=== PATIENT | female | born 1980 | race Caucasian/White ===

== ENCOUNTER 2023-07-29 02:43 | Inpatient (IN) | payer OTHER ==
[~2023-07-29] VITALS: Ht 167.6 cm; Wt 113.4 kg
[2023-07-29 02:50] VITALS: BP_SYST 162; PULSE 83; RESP 16; TEMP 97.1; O2SAT 98
[2023-07-29 03:49] LABS: BASOPHILS # (AUTO) 0.1 K/uL (0.0-0.2); EOSINOPHILS # (AUTO) 0.3 K/uL (0.0-0.4); EOSINOPHILS % (AUTO) 4.1 % (0.0-4.0); HEMATOCRIT 31.2 % (36-48); HEMOGLOBIN 10.3 g/dL (12.0-16.0); LYMPHOCYTES # (AUTO) 2.8 K/uL (1.0-5.5); MEAN CORPUSCULAR HEMOGLOBIN 25 pg (27-31); MEAN CORPUSCULAR HGB CONC 33 % (32-36); MEAN CORPUSCULAR VOLUME 76 fL (79.0-98.0); MONOCYTES # (AUTO) 0.5 K/uL (0.0-1.0); NEUTROPHILS # (AUTO) 4.3 K/uL (1.8-7.7); NEUTROPHILS % (AUTO) 53.9 % (40.0-70.0); PLATELET COUNT (AUTO) 431 K/uL (130-430); RED BLOOD CELL COUNT(AUTO) 4.13 MIL/uL (4.2-6.2); RED CELL DISTRIBUTION WIDTH 14.6 % (9.0-15.0)
[2023-07-29] MEDS: MORPHINE 4 MG INJ. 4 MG/ML VIAL IVP ONE (04:00)
[2023-07-29] MEDS: NITROGLYCERIN 1 INCH (GM) OINT. TP ONE (04:01)
[2023-07-29 04:10] LABS: ALANINE AMINOTRANSFERASE 36 U/L (12-78); ALBUMIN 3.1 g/dL (3.4-4.8); ANION GAP 9 (5-15); ASPARTATE AMINOTRANSFERASE 20 U/L (10-37); BILIRUBIN,DIRECT 0.1 mg/dL (0.0-0.3); CALCIUM 8.5 mg/dL (8.4-11.0); CARBON DIOXIDE 29 mmol/L (23-29); CHLORIDE 105 mmol/L (98-107); GFR AFRICAN AMERICAN 101 mL/min (>90); GFR NON AFRICAN-AMERICAN 83 mL/min (>90); GLUCOSE 99 mg/dL (74-106); POTASSIUM 3.8 mmol/L (3.5-5.1); SODIUM SERUM 143 mmol/L (136-145); TOTAL BILIRUBIN 0.3 mg/dL (0.0-1.0); TOTAL PROTEIN, SERUM 6.8 g/dL (6.4-8.3); UREA NITROGEN, BLOOD 9 mg/dL (8-21)
[2023-07-29] MEDS ORDERED: LOSA-415 PO (04:30)
[2023-07-29] MEDS ORDERED: PANT40TA45 PO (04:30)
[2023-07-29] MEDS ORDERED: LOSA-412 PO (04:39)
[2023-07-29] MEDS ORDERED: PANT20TA2 PO (04:39)
[2023-07-29 10:11] VITALS: BP_SYST 107; PULSE 81; RESP 18; TEMP 97.6; O2SAT 96
[2023-07-29] MEDS ORDERED: IBUPROFEN 600 MG TABLET PO PRN (11:15)
[2023-07-29] MEDS: PANTOPRAZOLE SODIUM 40 MG TAB PO ONE (11:22)
[2023-07-30] MEDS ORDERED: PANTOPRAZOLE SODIUM 40 MG TAB PO SCH (09:00)
== END 2023-07-29 11:35 | disposition left against medical advice (07) | DRG 313 ==
LOC: SED 02:43 → STU 08:35
PROVIDERS: ADMIT Internal Medicine; ATTEND Internal Medicine
DX: R07.89 Other chest pain (principal); K21.9 Gastro-esophageal reflux disease without esophagitis; I10 Essential (primary) hypertension; Z79.899 Other long term (current) drug therapy
CPT/HCPCS: 36415; 71045; 80048; 80076; 83880; 84484; 85025; 85379; 99285; G0378; J2270